=== PATIENT | female | born 1975 | race Caucasian/White ===

== ENCOUNTER 2018-10-13 13:59 | Emergency (ER) | payer OTHER ==
[~2018-10-13] VITALS: Ht 172.7 cm; Wt 99.0 kg
[2018-10-13 14:00] VITALS: BP 130/80
[2018-10-13] MEDS ORDERED: methylPREDNISolone SOD SUCC PF 125 MG/2 ML VIAL. IM ONE (14:15)
[2018-10-13] MEDS ORDERED: PRED-220 PO (14:52)
--- NOTE | 2018-10-13 14:53 | PHYS DOC ---
Past History Past Medical History: Other Past Surgical History: Tonsillectomy Alcohol Use: None Drug Use: None Adult General Chief Complaint Chief Complaint: SKIN RASH/ABSCESS [facility] HPI [id number] male presents with a rash on his bilateral arms and trunk. The patient believes he got into poison kady. It is erythematous, intensely pruritic, and "all over". The patient was given a Medrol Dosepak and things seem to be improving, but he is on his second last day which is only 80 mg dose. The lesions on his arms came back overnight and he is still getting new lesions on his upper arms and trunk. He denies any other injuries or complaints. Review of Systems Review of Systems Constitutional: Denies fever or chills [] Eyes: Denies change in visual acuity, redness, or eye pain [] HENT: Denies nasal congestion or sore throat [] Respiratory: Denies cough or shortness of breath [] Cardiovascular: No additional information not addressed in HPI [] GI: Denies abdominal pain, nausea, vomiting, bloody stools or diarrhea [] : Denies dysuria or hematuria [] Musculoskeletal: Denies back pain or joint pain [] Integument: Rash[] Neurologic: Denies headache, focal weakness or sensory changes [] Endocrine: Denies polyuria or polydipsia [] All other systems were reviewed and found to be within normal limits, except as documented in this note. Current Medications Current Medications Current Medications Medications (Trade) Dose Ordered Sig/Leann Start Time Stop Time Status Last Admin Dose Admin Methylprednisolone Sodium Succinate (SOLU-Medrol 125MG VIAL) 125 mg 1X ONCE 10/13/18 14:15 10/13/18 14:44 DC 10/13/18 14:35 125 MG Allergies Allergies Allergies Coded Allergies Type Severity Reaction Last Updated Verified No Known Drug Allergies 10/13/18 No Physical Exam Physical Exam Constitutional: Well developed, well nourished, no acute distress, non-toxic appearance. [] HENT: Normocephalic, atraumatic, bilateral external ears normal, oropharynx moist, no oral exudates, nose normal. [] Eyes: PERRLA, EOMI, conjunctiva normal, no discharge. [] Neck: Normal range of motion, no tenderness, supple, no stridor. [] Cardiovascular:Heart rate regular rhythm, no murmur [] Lungs & Thorax: Bilateral breath sounds clear to auscultation [] Abdomen: Bowel sounds normal, soft, no tenderness, no masses, no pulsatile masses. [] Skin: Erythematous plaques on the bilateral upper extremities and anterior trunk consistent with poison kady or similar.[] Back: No tenderness, no CVA tenderness. [] Extremities: No tenderness, no cyanosis, no clubbing, ROM intact, no edema. [] Neurologic: Alert and oriented X 3, normal motor function, normal sensory function, no focal deficits noted. [] Psychologic: Affect normal, judgement normal, mood normal. [] Current Patient Data Vital Signs Vital Signs Date Time Temp Pulse Resp B/P (MAP) Pulse Ox O2 Delivery O2 Flow Rate FiO2 10/13/18 14:00 99.0 86 16 98 Room Air EKG EKG [] Radiology/Procedures Radiology/Procedures [] Course & Med Decision Making Course & Med Decision Making Pertinent Labs and Imaging studies reviewed. (See chart for details) Patient has ankylosing spondylitis. He does get immune modulating injections, but he gets them quarterly. His last injection was about 2 months ago. He typically only has immune suppression a few days after his injection. He is not concerned about taking additional prednisone. I will give the patient 125 of Solu-Medrol IM. I will also give him a 14 day taper of a higher dose of prednisone. I have stressed that he is still getting exposed to the poison kady somehow and needs to continue to clean additional items in his house and vehicle. He is stable for discharge at this time. [] Dragon Disclaimer Dragon Disclaimer This electronic medical record was generated, in whole or in part, using a voice recognition dictation system. Departure Departure: Impression: Primary Impression: Poison kady dermatitis Disposition: HOME, SELF-CARE Condition: STABLE Referrals: SUZANNE ABREU PA-C (PCP) Patient Instructions: Poison Kady, [id number] Scripts Prednisone (PREDNISONE) 10 Mg Tablet 10 MG PO UD for PREDNISONE TAPER, #37 TAB 0 Refills Take 4 tablets by mouth daily for 4 days, then take 3 tablets by mouth daily for 4 days, then take 2 tablet by mouth daily for 3 days, then take 1 tablet by mouth daily for 3 days, then stop. Prov: FIOR BUSTOS DO 10/13/18 FIOR BUSTOS DO Oct 13, 2018 14:53
== END 2018-10-13 14:55 | disposition home or self-care (01) ==
LOC: ER 13:59
DX: L23.7 Allergic contact dermatitis due to plants, except food (principal)
CPT/HCPCS: 96372; 99283; J2930

== ENCOUNTER → 2021-02-17 | Outpatient (CLI) | payer OTHER ==
[~2021-02-17] MED LIST: PRED-220 PO
--- NOTE | 2021-02-17 13:06 | RAD ---
XR KNEE_RT 1-2 VIEWS DATE: 02/17/2021 9:42 AM INDICATION: RIGHT KNEE PAIN COMPARISON: None. FINDINGS: Bones: There is no evidence of acute fracture or dislocation. Joints: Mild medial and patellofemoral compartment degenerative joint space narrowing. There is no j oint effusion. Miscellaneous: None. IMPRESSION: No acute osseous abnormality. Mild degenerative changes. Electronically signed by: Reed Phelps MD (02/17/2021 1:04 PM) VLAD
== END ==
LOC: RAD 09:35 → EDSEX 09:35
PROVIDERS: ATTEND Physician Assistant Medical
DX: Z02.71 Encounter for disability determination (principal); M17.11 Unilateral primary osteoarthritis, right knee
CPT/HCPCS: 73560